=== PATIENT | male | born 1970 | race Caucasian/White ===

== ENCOUNTER 2017-03-31 17:56 | Emergency (ER) | payer SELFPAY ==
[~2017-03-31] VITALS: Ht 175.3 cm; Wt 100.9 kg
[2017-03-31] MEDS ORDERED: CYCL10 PO (18:17)
[2017-03-31] MEDS ORDERED: AMLO-512 PO (18:17)
[2017-03-31] MEDS ORDERED: ONDANSETRON HCL 4 MG/2 ML VIAL IVP ONE (19:15)
[2017-03-31] MEDS ORDERED: ACETAMINOPHEN 500 MG TABLET PO ONE (19:15)
[2017-03-31] MEDS ORDERED: ASPIRIN 325 MG TABLET PO ONE (19:15)
[2017-03-31] MEDS ORDERED: SODIUM CHLORIDE 0.9% 2,000 ML IV ONE (19:15)
[2017-03-31] MEDS ORDERED: DIPHENOXYLATE/ATROP 2.5-0.025 MG TABLET PO ONE (19:15)
[2017-03-31 19:19] LABS: EOSINOPHILS % (AUTO) 0.01 % (1.0-6.0); HEMATOCRIT 45.3 % (41-53); HEMOGLOBIN 15.4 g/dL (13.5-17.5); LYMPHOCYTES # (AUTO) 0.6 K/uL (1.0-4.8); MEAN CORPUSCULAR HEMOGLOBIN 30.3 pg (26.0-34.0); MEAN CORPUSCULAR VOLUME 89 fL (80-100); MONOCYTES # (AUTO) 0.7 K/uL (0.1-1.0); MONOCYTES % (AUTO) 5.6 % (2.0-9.0); NEUTROPHILS # (AUTO) 10.5 K/uL (1.8-7.7); PLATELET COUNT (AUTO) 190 K/uL (150-450); RED BLOOD CELL COUNT(AUTO) 5.09 MIL/uL (4.50-5.90); WHITE BLOOD COUNT (AUTO) 11.7 K/uL (4.5-11.0)
[2017-03-31 19:25] LABS: ANION GAP 8 mmol/L (8-16); CALCIUM, TOTAL 9.2 mg/dL (8.8-10.5); CARBON DIOXIDE 29 mmol/L (22-29); CHLORIDE 102 mmol/L (98-107); CREATININE 1.24 mg/dL (0.60-1.30); GLOMERULAR FILTR. RATE CALC > 60 mL/min (>60); POTASSIUM 4.1 mmol/L (3.5-5.1); SODIUM SERUM 139 mmol/L (136-145); UREA NITROGEN, BLOOD 11 mg/dL (7-18)
[2017-03-31 19:26] LABS: NEUTROPHILS % (AUTO) 89.4 % (40.0-70.0)
[2017-03-31 19:31] LABS: ALANINE AMINOTRANSFERASE 74 U/L (12-78); ALBUMIN 3.7 g/dL (3.4-5.0); ASPARTATE AMINOTRANSFERASE 36 U/L (15-37); BILIRUBIN,TOTAL 0.8 mg/dL (0.1-1.0); TOTAL PROTEIN, SERUM 7.6 g/dL (6.4-8.2)
[2017-03-31 22:47] VITALS: BP 124/76
== END 2017-03-31 22:51 | disposition home or self-care (01) ==
LOC: EMS 17:59
DX: K52.9 Noninfective gastroenteritis and colitis, unspecified (principal); R07.89 Other chest pain; R42 Dizziness and giddiness; R51 Headache; I10 Essential (primary) hypertension
CPT/HCPCS: 36415; 71010; 80053; 83690; 84484; 85025; 93005; 96374; 99285; G0480; J2405; J7030

== ENCOUNTER 2020-05-27 15:59 | Emergency (ER) | payer MEDICAID ==
[~2020-05-27] VITALS: Ht 172.7 cm; Wt 90.9 kg
[~2020-05-27 15:59] MED LIST: AMLO-258 PO; CYCL10 PO
[2020-05-27] MEDS ORDERED: KETOROLAC TROMETHAMINE 60 MG/2 ML VIAL IM ONE (16:45)
[2020-05-27] MEDS ORDERED: HYDROCODONE/ACETAMINOPHEN 5-325 MG TABLET PO ONE (16:45)
[2020-05-27] MEDS ORDERED: COLCHICINE 0.6 MG TABLET PO ONE (16:45)
[2020-05-27 16:59] LABS: BASOPHILS % (AUTO) 0.5 % (0.0-2.0); EOSINOPHILS % (AUTO) 1.6 % (1.0-6.0); HEMATOCRIT 36.8 % (41-53); HEMOGLOBIN 12.7 g/dL (13.5-17.5); LYMPHOCYTES # (AUTO) 2.3 K/uL (1.0-4.8); LYMPHOCYTES % (AUTO) 26.7 % (22.0-44.0); MEAN CORPUSCULAR HEMOGLOBIN 30.2 pg (26.0-34.0); MEAN CORPUSCULAR HGB CONC 34.5 G/dL (31.0-37.0); MEAN CORPUSCULAR VOLUME 88 fL (80-100); MONOCYTES # (AUTO) 0.8 K/uL (0.1-1.0); MONOCYTES % (AUTO) 9.6 % (2.0-9.0); NEUTROPHILS # (AUTO) 5.2 K/uL (1.8-7.7); NEUTROPHILS % (AUTO) 61.6 % (40.0-70.0); PLATELET COUNT (AUTO) 294 K/uL (150-450); RED CELL DISTRIBUTION WIDTH 14.6 % (11.5-14.5)
[2020-05-27 17:17] LABS: ANION GAP 6 mmol/L (8-16); CARBON DIOXIDE 29 mmol/L (22-29); CHLORIDE 107 mmol/L (98-107); CREATININE 0.94 mg/dL (0.60-1.30); GLOMERULAR FILTR. RATE CALC > 60 mL/min (>60); GLUCOSE,RANDOM 111 mg/dL (70-110); SODIUM SERUM 142 mmol/L (136-145); UREA NITROGEN, BLOOD 10 mg/dL (7-18)
[2020-05-27 17:22] LABS: ALANINE AMINOTRANSFERASE 65 U/L (12-78); ALBUMIN 3.1 g/dL (3.4-5.0); ALKALINE PHOSPHATASE 65 U/L (46-116); ASPARTATE AMINOTRANSFERASE 41 U/L (15-37); BILIRUBIN,TOTAL 0.4 mg/dL (0.1-1.0); URIC ACID 8.3 mg/dL (2.6-7.2)
[2020-05-27 17:30] VITALS: BP 148/89
== END 2020-05-27 17:56 | disposition home or self-care (01) ==
LOC: EMS 15:59
DX: M10.9 Gout, unspecified (principal); M25.571 Pain in right ankle and joints of right foot; I10 Essential (primary) hypertension
CPT/HCPCS: 36415; 73610; 80053; 84550; 85025; 96372; 99284; J1885

== ENCOUNTER 2020-07-22 08:47 | Emergency (ER) | payer MEDICAID ==
[~2020-07-22] VITALS: Ht 180.3 cm; Wt 90.9 kg
[2020-07-22] MEDS ORDERED: ALLO-44 PO (08:53)
[2020-07-22] MEDS ORDERED: ACET325S20 PR (08:53)
[2020-07-22 09:14] VITALS: BP 136/90
[2020-07-22] MEDS ORDERED: IBUPROFEN 600 MG TABLET PO ONE (09:15)
[2020-07-22] MEDS ORDERED: KETOROLAC TROMETHAMINE 30 MG/ML VIAL IM ONE (09:30)
== END 2020-07-22 10:06 | disposition home or self-care (01) ==
LOC: EMS 09:19
DX: M25.571 Pain in right ankle and joints of right foot (principal); M25.572 Pain in left ankle and joints of left foot; M10.9 Gout, unspecified; I10 Essential (primary) hypertension
CPT/HCPCS: 96372; 99283; J1885

== ENCOUNTER 2021-04-22 19:13 | Emergency (ER) | payer MEDICAID ==
[~2021-04-22] VITALS: Ht 180.3 cm; Wt 100.5 kg
[~2021-04-22 19:13] MED LIST changes: +ACET325S20 PR; +ALLO100T2 PO
[2021-04-22] MEDS ORDERED: COLCHICINE 0.6 MG TABLET PO ONE (21:00)
[2021-04-22] MEDS ORDERED: HYDROCODONE/ACETAMINOPHEN 5-325 MG TABLET PO ONE (21:00)
[2021-04-22] MEDS ORDERED: KETOROLAC TROMETHAMINE 60 MG/2 ML VIAL IM ONE (21:00)
[2021-04-22 22:16] VITALS: BP 154/100
== END 2021-04-22 22:56 | disposition home or self-care (01) ==
LOC: EMS 19:16
DX: M10.9 Gout, unspecified (principal); I10 Essential (primary) hypertension; Z79.899 Other long term (current) drug therapy
CPT/HCPCS: 73080; 96372; 99283; J1885; 29240

== ENCOUNTER 2021-12-25 16:51 | Emergency (ER) | payer MEDICAID ==
[~2021-12-25] VITALS: Ht 172.7 cm; Wt 100.0 kg
[~2021-12-25 16:51] MED LIST changes: +ALLO-97 PO; -ALLO100T2 PO; +CYCL-448 PO; -CYCL10 PO
[2021-12-25] MEDS ORDERED: KETOROLAC TROMETHAMINE 30 MG/ML VIAL IM ONE (19:15)
[2021-12-25] MEDS ORDERED: COLCHICINE 0.6 MG TABLET PO ONE (19:15)
[2021-12-25] MEDS ORDERED: HYDROCODONE/ACETAMINOPHEN 5-325 MG TABLET PO ONE (19:15)
[2021-12-25 21:50] VITALS: BP 121/83
== END 2021-12-25 22:11 | disposition home or self-care (01) ==
LOC: EMS 16:51
DX: M10.9 Gout, unspecified (principal); I10 Essential (primary) hypertension
CPT/HCPCS: 96372; 99283; J1885

== ENCOUNTER 2022-02-06 10:22 | Emergency (ER) | payer MEDICAID ==
[~2022-02-06] VITALS: Ht 175.3 cm; Wt 95.5 kg
[2022-02-06] MEDS ORDERED: IBUP-2070 PO (13:06)
[2022-02-06 14:18] VITALS: BP 118/75
== END 2022-02-06 14:20 | disposition home or self-care (01) ==
LOC: EMS 10:22
DX: M25.562 Pain in left knee (principal); I10 Essential (primary) hypertension; M10.9 Gout, unspecified
CPT/HCPCS: 99283

== ENCOUNTER 2023-07-10 16:19 | Emergency (ER) | payer MEDICAID ==
[~2023-07-10] VITALS: Ht 180.3 cm; Wt 86.4 kg
[~2023-07-10 16:19] MED LIST changes: +IBUP-1492 PO
[2023-07-10 20:01] VITALS: BP 129/77; PULSE 69; RESP 17; TEMP 98.3
== END 2023-07-10 20:16 | disposition home or self-care (01) ==
LOC: EMS 16:20
DX: S09.90XA Unspecified injury of head, initial encounter (principal); I10 Essential (primary) hypertension; W22.8XXA Striking against or struck by other objects, initial encounter; Y93.89 Activity, other specified; Y92.89 Other specified places as the place of occurrence of the external cause; Y99.8 Other external cause status
CPT/HCPCS: 70450; 72125; 99284

== ENCOUNTER 2024-09-29 19:00 | Emergency (ER) | payer MEDICAID ==
[~2024-09-29] VITALS: Ht 172.7 cm; Wt 95.5 kg
[~2024-09-29 19:00] MED LIST changes: -ACET325S20 PR; -ALLO-97 PO; -CYCL-448 PO; -IBUP-1492 PO
[2024-09-29 19:22] VITALS: TEMP 98.2
[2024-09-29 22:04] VITALS: BP 145/91; PULSE 73; RESP 18; O2SAT 97
[2024-09-29] MEDS ORDERED: ACET-66 PO (22:42)
[2024-09-29] MEDS ORDERED: IBUP-1493 PO (22:42)
[2024-09-29] MEDS: KETOROLAC TROMETHAMINE 60 MG/2 ML VIAL IM ONE (22:50)
[2024-09-29] MEDS: ACETAMINOPHEN 500 MG TABLET PO ONE (22:51)
== END 2024-09-29 23:03 | disposition home or self-care (01) ==
LOC: EMS 19:00
DX: S40.011A Contusion of right shoulder, initial encounter (principal); I10 Essential (primary) hypertension; Z79.899 Other long term (current) drug therapy; W19.XXXA Unspecified fall, initial encounter; Y93.89 Activity, other specified; Y92.89 Other specified places as the place of occurrence of the external cause; Y99.8 Other external cause status
CPT/HCPCS: 99283; 73030; 96372; J1885

== ENCOUNTER 2025-03-14 17:38 | Emergency (ER) | payer MEDICAID ==
[~2025-03-14] VITALS: Ht 172.7 cm; Wt 95.0 kg
[~2025-03-14 17:38] MED LIST changes: +ACET-66 PO; +IBUP-1493 PO
[2025-03-14 17:45] VITALS: O2SAT 99
[2025-03-14] MEDS ORDERED: COLC-3 PO (21:17)
[2025-03-14] MEDS ORDERED: IBUP-1554 PO (21:17)
[2025-03-14] MEDS ORDERED: HYDR-4062 PO (21:17)
[2025-03-14] MEDS: COLCHICINE 0.6 MG TABLET PO ONE (21:42)
[2025-03-14] MEDS: HYDROCODONE/ACETAMINOPHEN 5-325 MG TABLET PO ONE (21:43)
[2025-03-14] MEDS: IBUPROFEN 600 MG TABLET PO ONE (21:43)
[2025-03-14 22:00] VITALS: BP 133/85; PULSE 78; RESP 17; TEMP 97.3
== END 2025-03-14 22:30 | disposition home or self-care (01) ==
LOC: EMS 17:40
DX: M10.9 Gout, unspecified (principal); I10 Essential (primary) hypertension; Z79.899 Other long term (current) drug therapy
CPT/HCPCS: 99284; Z7502; Z7610